=== PATIENT | female | born 1940 | race Caucasian/White ===

== ENCOUNTER → 2016-10-23 | Outpatient (CLI) | payer OTHER, BC ==
[~2016-10-23] MED LIST: ACETAMINOPHEN-1 EAC1 PO; ALDARA1 EACH TP; AMOX TR-K CLV1 EAC4 PO; ASPIRIN81 M2 PO; ATIVAN1 MG PO; CARISOPRODOL 3350 MG PO; CEFDINIR PO; COLACE100 MG PO; COMBIVENT IN; COMBIVENT RESPIM4 GM INH; COUMADIN 5 MG TA5 M1 PO; COUMADIN 5 MG TA5 MG PO; CYCLOBENZAPRINE5 MG PO; CYMBALTA30 MG PO; DILTIAZEM ER240 M1 PO; DILTIAZEM ER300 MG PO; DUONEB 2.5-0.5 M3 ML INH; FLONASE 0.05%50 MCG NS; FLONASE16 GM NASAL; FUROSEMIDE 40 M40 M1 PO; HYDROCODONE-APA1 TA1 PO; JANTOVEN6 MG PO; KEPPRA 500 MG500 M1 PO; KLOR-CON 1010 MEQ PO; LANOXIN 0.120.125 M1 PO; LANOXIN 0.250.25 MG PO; LASIX 20 MG TAB20 MG PO; LEVAQUIN 500 M500 M2 PO; LOPRESSOR50 PO; NORCO 5-325 TA1 EACH PO; NYSTATIN 1100000 U/M SWISH&SPIT; PANTOPRAZOLE SO40 M1 PO; PREDNISONE 20 M20 MG PO; PREVACID15 MG PO; PREVACID30 M1 PO; PRINIVIL10 MG PO; PRINIVIL5 MG PO; PULMICORT0.5 MG/22 INH; SEROQUEL 12.512.5 MG PO; SOMA250 MG; SYMBICORT160 MCG/4. INH; TOPROL XL 25 MG25 MG PO; TRAVATAN Z2.5 ML OPHTHALMIC; TRAZODONE HCL50 MG PO; VITAMIN B-122500 MCG PO; VITAMIN D 5050000 I1 PO; XOPENEX0.63 MG/3 IH; ZANAFLEX4 MG PO; ZOFRAN ODT4 MG DISSOLVE
== END ==
LOC: RAD 13:22
DX: J47.9 Bronchiectasis, uncomplicated (principal)

== ENCOUNTER → 2017-08-12 | Outpatient (CLI) | payer OTHER, BC ==
[2017-08-12 12:44] LABS: ABSOLUTE NEUTROPHILS 2.8 thou/uL (1.4-8.2); BASOPHILS 0.8 % (0.0-2.0); EOSINOPHILS 1.1 % (0.0-3.0); HEMATOCRIT 36.7 % (37.0-47.0); HEMOGLOBIN 12.2 gm/dL (12.0-15.0); LYMPHOCYTES 25.6 % (24.0-44.0); MCH 28.5 pg (26.0-34.0); MCHC 33.2 g/dL (28.0-37.0); MCV 85.7 fL (80.0-100.0); MONOCYTES 11.3 % (1.0-8.0); PLATELET COUNT 269 thou/uL (150-400); POLYS 61.2 % (36.0-66.0); RBC 4.28 mil/uL (4.20-5.00); RDW 14.8 % (10.5-14.5); WBC 4.6 thou/uL (4.0-11.0)
[2017-08-12 12:49] LABS: CALCIUM 8.9 mg/dL (8.5-10.1); CREATININE 0.9 mg/dL (0.6-1.0); POTASSIUM 3.7 mmol/L (3.5-5.1)
[2017-08-12 12:55] LABS: ALBUMIN 4.1 g/dL (3.4-5.0); TOTAL BILIRUBIN 0.4 mg/dL (<0.1-1.0); TOTAL PROTEIN 7.1 g/dL (6.4-8.2)
== END ==
LOC: LABMALL 12:08
PROVIDERS: Internal Medicine Pulmonary Disease
DX: J47.9 Bronchiectasis, uncomplicated (principal)

== ENCOUNTER 2018-06-03 16:31 | Inpatient (IN) | payer OTHER ==
[~2018-06-03] VITALS: Ht 165.1 cm; Wt 49.4 kg
[~2018-06-03 16:31] MED LIST changes: -DILTIAZEM ER300 MG PO; +DILTIAZEM ER360 MG PO
[2018-06-03 16:39] VITALS: BP 149/71
[2018-06-03] MEDS ORDERED: WARFARIN SODIUM2 MG PO (16:47)
[2018-06-03] MEDS ORDERED: COUMADIN 5 MG TA5 M1 PO (16:47)
[2018-06-03 17:44] LABS: ABSOLUTE NEUTROPHILS 7.2 thou/uL (1.4-8.2); BASOPHILS 0.6 % (0.0-2.0); EOSINOPHILS 0.2 % (0.0-3.0); HEMATOCRIT 35.2 % (37.0-47.0); HEMOGLOBIN 11.6 gm/dL (12.0-15.0); LYMPHOCYTES 9.4 % (24.0-44.0); MCH 27.7 pg (26.0-34.0); MONOCYTES 7.7 % (1.0-8.0); PLATELET COUNT 408 thou/uL (150-400); POLYS 82.1 % (36.0-66.0); RBC 4.19 mil/uL (4.20-5.00); RDW 17.1 % (10.5-14.5); WBC 8.7 thou/uL (4.0-11.0)
[2018-06-03 17:55] LABS: CALCIUM 9.8 mg/dL (8.5-10.1); CREATININE 0.8 mg/dL (0.6-1.0); POTASSIUM 5.5 mmol/L (3.5-5.1)
[2018-06-03 18:05] LABS: URINE BILIRUBIN NEGATIVE (Negative); URINE BLOOD NEGATIVE (Negative); URINE CLARITY CLEAR; URINE COLOR YELLOW; URINE GLUCOSE-RANDOM* NEGATIVE (Negative); URINE KETONES NEGATIVE (Negative); URINE LEUKOCYTES-REFLEX NEGATIVE (Negative); URINE NITRITE-REFLEX NEGATIVE (Negative); URINE PROTEIN (DIPSTICK) NEGATIVE (Negative); URINE SPECIFIC GRAVITY 1.025 (1.005-1.035); URINE UROBILINOGEN 0.2 E.U./dl (0.2-1.0)
[2018-06-03 18:05] LABS: ALBUMIN 3.4 g/dL (3.4-5.0); TOTAL BILIRUBIN 0.5 mg/dL (<0.1-1.0); TOTAL PROTEIN 7.8 g/dL (6.4-8.2)
--- NOTE | 2018-06-03 18:57 | NUR ---
PHARMACY CALLED DILTIAZEM HAS NOT BEEN DELIEVERED YET. PHARMACY SAID THEY ARE SENDING IT NOW
[2018-06-03 20:10] VITALS: BP 133/62
[2018-06-03 20:31] VITALS: BP 131/63
[2018-06-03 20:55] VITALS: BP 142/62
[2018-06-03] MEDS ORDERED: ISTALOL2.5 ML OP (21:13)
[2018-06-03 23:02] LABS: INR 1.7; PROTIME 18.1 Seconds (9.3-11.4)
[2018-06-04] VITALS (7 sets, daily range): BP systolic 99–131; BP diastolic 36–63
--- NOTE | 2018-06-04 05:19 | NUR ---
PT. ARRIVED AROUND 1999; AOX4; ON 10 MG/H CARDIZEM GTT; HR ON 130'S; C/O LOWER BACK PAIN; TYLENOL 3 REQUESTED PER HOME MEDS; PAIN RE-ASSESSMENT 06/25; HS SLEEPING MEDICATION GIVEN AROUND MIDNIGHT; ABLE TO REST JUST A FEW HOURS DURING THE NIGHT; AT 0330 CARDIZEM TITRATE TO 5 MG/H; HR ON 70'S-80'S; BP WNL; ASSESSMENT CHARGED; FOLLOWING POC;
[2018-06-04 07:08] LABS: CALCIUM 9.1 mg/dL (8.5-10.1); CREATININE 0.8 mg/dL (0.6-1.0); POTASSIUM 4.8 mmol/L (3.5-5.1)
--- NOTE | 2018-06-04 08:23 | EKG ---
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 : 1940 Requested By: Carlos Eduardo Clemente Order Number: [id number] MD: Pee Perez Measurements Intervals [place] Rate: 125 P: [place]: QRS: 66 QRSD: 83 T: -16 QT: 304 QTc: 439 Interpretive Statements Atrial fibrillation Abnormal R-wave progression, early transition Borderline T abnormalities, inferior leads Compared to ECG 09/30/2015 10:57:51 T-wave abnormality now present Ventricular premature complex(es) no longer present Early repolarization no longer present Possible ischemia no longer present Electronically Signed On 06-04-2018 8:23:20 CDT by Pee Perez [email or web address] ��������������������������������������������� <ELECTRONICALLY SIGNED> ���������������������������������������� By: Pee Perez MD ��������������������������������������������� 06/04/18 0823 04 04 Pee Perez MD /EPI
--- NOTE | 2018-06-04 18:56 | NUR ---
CARDIZEM GTT DISCONTINUED THIS AM. STARTED ON PO CARDIZEM. EPISODE OF ELEVATED HEART RATE THIS AFTERNOON. PLAN TO STAY OVER NIGHT TO MONITOR AND DISCHARGE IN AM. PRN PAIN MEDICATION GIVEN FOR CHRONIC BACK PAIN. UP TO BEDSIDE COMMODE. MULTIPLE LOOSE BOWEL MOVEMENTS AFTER MIRALAX GIVEN. FAMILY AT BEDSIDE THROUGH OUT THE DAY.
[2018-06-05 05:13] LABS: INR 1.6; PROTIME 16.9 Seconds (9.3-11.4)
[2018-06-05 05:40] VITALS: BP 135/73
--- NOTE | 2018-06-05 05:44 | NUR ---
RECEIVED PT'S CARE AT 1900; ON BED; AOX4; PAIN RATE 5/10; MANAGABLE; A-FIB ON MONITOR; 110'S; C/O PAIN ON R. AC IV; IV D/C; NEW IV ON R. HAND; FLUSHING; NO REDNESS; PER BUCKET OPERATOR ORDERS FLUIDS D/C; PT. DRINKING; VOIDING; CREATININE WNL; AT 2330 PT'S HR ON LATES 120'S -130'S; BUCKET OPERATOR NOTIFIED; ORDERS RECEIVED;10 MG CARDIZEM BOLUS GIVEN; RE-ASSESSMENT AFTER 45MIN; HR ON 110'S; AFIB; REQUESTED PRN PAIN MEDICATION AT 2345; PRN PAIN MEDICATION GIVEN; RE-ASSESSMENT PAIN; PT. SLEEPING; AT MIDNIGHT PT. REQUESTED PRN NAUSEA MEDICATION; MEDICATION GIVNE; AROUND 0335; PT. REQUESTED NEW GOWN AND SET OF BED DUE TO GLADIS; TEMPERATURE 98.2; ST. FREQUENTLY [place]ADIS AT NIGHT; ABLE TO REST MOST OF THE NIGHT; HR MOSTLY ON THE 80'S THE REST OF THE NIGHT; PAIN MEDICATION REQUESTED AT 0600; WILL BE GIVEN; ASSESSMENT CHARGED; FOLLOWING POC; WILL PASS ON REPORT.
[2018-06-05 08:17] VITALS: BP 111/52
[2018-06-05 12:25] VITALS: BP 95/45
[2018-06-05 15:56] VITALS: BP 95/42
--- NOTE | 2018-06-05 18:28 | NUR ---
PT STARTED ON ATENOLOL TODAY WITH GOOD RATE CONTROL. PT AMBULATED BECK WELL. PLAN FOR DISCHARGE IN THE AM.
[2018-06-05 19:12] VITALS: BP 125/67
[2018-06-06 04:55] VITALS: BP 104/43
[2018-06-06 05:40] LABS: HEMATOCRIT 34.3 % (37.0-47.0); HEMOGLOBIN 11.1 gm/dL (12.0-15.0); MCH 27.4 pg (26.0-34.0); MCHC 32.4 g/dL (28.0-37.0); MCV 84.7 fL (80.0-100.0); RBC 4.05 mil/uL (4.20-5.00); RDW 16.8 % (10.5-14.5); WBC 5.4 thou/uL (4.0-11.0)
[2018-06-06 05:48] LABS: CALCIUM 9.4 mg/dL (8.5-10.1); CREATININE 0.8 mg/dL (0.6-1.0); POTASSIUM 4.7 mmol/L (3.5-5.1)
--- NOTE | 2018-06-06 06:00 | NUR ---
Pt. rested quietly at intervals during the night when checked on during frequent rounds. She c/o back pain and given po pain meds (see emar) with some relief noted. Bed alarm is on.
[2018-06-06 08:00] VITALS: BP 104/59
--- NOTE | 2018-06-06 08:42 | HC ---
[facility] [place] [address] CONSULTATION Name: XOCHITL JANG Room #: 218-P ADM IN M.R.#: [id number] Admission: 06/03/18 ������������������ Attend Phys: Jcarlos Thapa MD Discharge: ������������������ Date of : 42 Report #: [id number] THIS REPORT FOR: //name// CC: Jcarlos Leggett DATE OF SERVICE: 06/03/2018 TYPE OF REPORT: Cardiology consultation. INDICATION: Atrial fibrillation. HISTORY OF PRESENT ILLNESS: This is a 78-year-old female with a history of CABG, SC, chronic atrial fibrillation, COPD and hypertension; who was admitted for complaints of abdominal pain, nausea and constipation 2 days ago. She was also complaining of a low-grade fever. The initial chest x-ray was unremarkable. Her symptoms have resolved. She is able to tolerate her meals without any issues. We are asked to evaluate the patient for rapid heart rate from her atrial fibrillation. Several weeks ago, she was hospitalized at [facility] for pneumonia. During that time, the Cardizem dose was increased. She denies any history of chest pains or shortness of breath. The patient follows with Dr. Howie Cruz at [facility] for her cardiac issues. PAST MEDICAL HISTORY: CABG, SC 2008, history of COPD, hypertension, chronic atrial fibrillation and followed by Dr. Cruz and GERD. ALLERGIES: Include ANTIBIOTICS. Please see chart for full listing. MEDICATIONS AT HOME: Include Cardizem 360 daily, warfarin as directed, codeine and lisinopril 20 mg daily. SOCIAL HISTORY: Denies tobacco use. FAMILY HISTORY: Negative for premature CAD. REVIEW OF SYSTEMS: A full 10-point review of systems performed. Only the pertinent positives and negatives are described in the HPI. PHYSICAL EXAMINATION: VITAL SIGNS: Blood pressure is 111/60 and heart rate is 125 beats per minute. GENERAL APPEARANCE: An elderly appearing female, in no acute distress. HEENT: Normocephalic and atraumatic. Oral mucosa moist. NECK: Supple. LUNGS: Diminished breath sounds with a few rhonchi at the bases. [facility] [address] [place] [address] CONSULTATION Name: XOCHITL JANG Room #: 218-P [facility] IN .R.#: [id number] Admission: 06/03/18 ������������������ Attend Phys: Jcarlos Thapa MD Discharge: ������������������ Date of : 42 Report #: [id number] CARDIAC: Irregularly irregular. S1 and S2 positive. ABDOMEN: Soft and nontender. EXTREMITIES: No cyanosis. No edema. RADIOLOGICAL DATA: ECG reveals atrial fibrillation with a heart rate of 125 beats per minute. LABORATORY VALUES: Sodium is 131 and creatinine 0.8. Hemoglobin is 11.6. ASSESSMENT AND PLAN: 1. Atrial fibrillation with a rapid ventricular rate, currently on Cardizem 360 mg once a day. She does not appear to have any obvious infections. It is unclear why the heart rates or so fast. I discussed with the patient the pros and cons of beta vishal therapy. She does not recall having any issues with it. The plan is to start a low dose of atenolol and follow her heart rates. Check a TSH level. We will proceed with an echocardiogram. 2. Hypertension. The blood pressure is stable with the angiotensin-converting enzyme inhibitor. 3. Coronary artery bypass grafting/coronary artery disease, stable with no complaints of angina. 4. Long-term anticoagulation, continue with warfarin, target of INR should be 2-3. 5. Chronic obstructive pulmonary disease, appears to be stable at this time. ��������������������������������������������� <ELECTRONICALLY SIGNED> ���������������������������������������� By: Juan Pablo Ham MD ��������������������������������������������� 06/06/18 0842 1002 0418 Juan Pablo Ham MD /nt
[2018-06-06] MEDS ORDERED: ATENOLOL 25 MG25 M1 PO (13:30)
[2018-06-06 13:42] VITALS: BP 104/43
== END 2018-06-06 14:22 | disposition home or self-care (01) | DRG 309 ==
LOC: ER 16:31 → 2N 19:34 → EROBS 19:34 → 2N 20:32
PROVIDERS: Emergency Medicine; Internal Medicine Cardiovascular Disease; Nurse Practitioner Acute Care; ADMIT Internal Medicine
DX: I48.91 Unspecified atrial fibrillation (principal); J96.10 Chronic respiratory failure, unspecified whether with hypoxia or hypercapnia; Z68.1 Body mass index [BMI] 19.9 or less, adult; J44.9 Chronic obstructive pulmonary disease, unspecified; I10 Essential (primary) hypertension; K21.9 Gastro-esophageal reflux disease without esophagitis; K59.00 Constipation, unspecified; I25.10 Atherosclerotic heart disease of native coronary artery without angina pectoris; E11.65 Type 2 diabetes mellitus with hyperglycemia; E87.5 Hyperkalemia; R63.4 Abnormal weight loss; Z87.01 Personal history of pneumonia (recurrent); Z88.1 Allergy status to other antibiotic agents; Z88.2 Allergy status to sulfonamides; Z88.0 Allergy status to penicillin; Z88.8 Allergy status to other drugs, medicaments and biological substances; Z79.01 Long term (current) use of anticoagulants; Z79.899 Other long term (current) drug therapy; I25.2 Old myocardial infarction; Z85.3 Personal history of malignant neoplasm of breast; Z90.12 Acquired absence of left breast and nipple; Z82.49 Family history of ischemic heart disease and other diseases of the circulatory system; Z82.3 Family history of stroke; Z80.1 Family history of malignant neoplasm of trachea, bronchus and lung; Z87.891 Personal history of nicotine dependence; Z95.1 Presence of aortocoronary bypass graft
CPT/HCPCS: 10081

== ENCOUNTER → 2020-02-28 | Outpatient (CLI) | payer OTHER ==
[~2020-02-28] MED LIST changes: +ATENOLOL 25 MG25 M1 PO; +ISTALOL2.5 ML OP; +WARFARIN SODIUM2 MG PO
== END ==
LOC: RAD 13:21
PROVIDERS: ATTEND Pediatrics
DX: J44.9 Chronic obstructive pulmonary disease, unspecified (principal); J98.11 Atelectasis; J30.9 Allergic rhinitis, unspecified; R06.02 Shortness of breath; R06.00 Dyspnea, unspecified

== ENCOUNTER 2020-09-18 14:12 | Inpatient (IN) | payer OTHER ==
[~2020-09-18] VITALS: Ht 162.6 cm; Wt 39.9 kg
[2020-09-18 14:13] VITALS: BP 142/60
[2020-09-18 14:47] LABS: ABSOLUTE NEUTROPHILS 6.2 thou/uL (1.4-8.2); BASOPHILS 0.6 % (0.0-2.0); EOSINOPHILS 2.4 % (0.0-3.0); HEMATOCRIT 36.9 % (37.0-47.0); HEMOGLOBIN 12.3 gm/dL (12.0-15.0); LYMPHOCYTES 16.6 % (24.0-44.0); MCH 30.2 pg (26.0-34.0); MCHC 33.4 g/dL (28.0-37.0); MCV 90.5 fL (80.0-100.0); MONOCYTES 4.8 % (1.0-8.0); PLATELET COUNT 243 thou/uL (150-400); POLYS 75.6 % (36.0-66.0); RBC 4.08 mil/uL (4.20-5.00); RDW 14.6 % (10.5-14.5); WBC 8.2 thou/uL (4.0-11.0)
[2020-09-18] MEDS ORDERED: ONDANSETRON ODT4 MG PO (14:47)
[2020-09-18] MEDS ORDERED: FUROSEMIDE 20 M20 M1 PO (14:47)
[2020-09-18] MEDS ORDERED: AZITHROMYCIN 2250 MG PO (14:47)
[2020-09-18] MEDS ORDERED: MECLIZINE HCL12.5 MG PO (14:48)
[2020-09-18] MEDS ORDERED: ANORO ELLIPTA1 EACH INH (14:48)
[2020-09-18] MEDS ORDERED: CLINDAMYCIN HC300 MG PO (14:48)
[2020-09-18] MEDS ORDERED: SINGULAIR 10 MG10 M1 PO (14:51)
[2020-09-18] MEDS ORDERED: APAP W/CODEINE1 TA2 PO (14:51)
[2020-09-18] MEDS ORDERED: DILTIAZEM 24HR180 M1 PO (14:51)
[2020-09-18 14:58] LABS: ANION GAP 3 mmol/L (7-16); BUN 14 mg/dL (7-18); CALCIUM 8.9 mg/dL (8.5-10.1); CHLORIDE 101 mmol/L (98-107); CO2 34 mmol/L (21-32); GLUCOSE 96 mg/dL (74-106); POTASSIUM 4.1 mmol/L (3.5-5.1); SODIUM 138 mmol/L (136-145)
[2020-09-18 15:09] LABS: ALBUMIN 3.9 g/dL (3.4-5.0); SGOT 22 U/L (15-37); SGPT 31 U/L (14-59); TOTAL BILIRUBIN 0.4 mg/dL (0.2-1.0); TOTAL PROTEIN 7.5 g/dL (6.4-8.2); TROPONIN-I <0.06 ng/mL (<0.06)
--- NOTE | 2020-09-18 15:17 | EKG ---
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: : 1940 Requested By: Jacob Dumont Order Number: [id number] MD: Neil Wood Measurements Intervals [place] Rate: 93 P: [place]: QRS: 57 QRSD: 85 T: 235 QT: 391 QTc: 487 Interpretive Statements Atrial fibrillation Repol abnrm, global ischemia, diffuse leads Compared to ECG 06/03/2018 17:05:15 Early repolarization now present Possible ischemia now present T-wave abnormality no longer present Electronically Signed On 09-18-2020 15:17:53 CDT by Neil Wood [email or web address] <ELECTRONICALLY SIGNED> By: Neil Wood MD, [facility] 09/18/20 1517 1427 1427 Neil Wood MD, FACC /EPI
[2020-09-18 17:02] LABS: BE(vivo) 6.6 mmol/L (-2 to +3); HCO3 31.6 mmol/L (22.0-26.0); PCO2 46.6 mmHg (35.0-45.0); PO2 69.8 mmHg (80.0-100.0); pH 7.449 (7.360-7.450); sO2 94.6 % (92.0-98.0)
[2020-09-18 18:11] VITALS: BP 156/69
[2020-09-18 19:31] VITALS: BP 118/97
[2020-09-18 19:51] VITALS: BP 169/75
--- NOTE | 2020-09-19 01:31 | NUR ---
Pt admitted to 463 at about 1950. Alert and oriented. Admission hx and assessment as documented. Afib. Pt's HR was up in the 150's and received scheduled PO cardizem. Did not do much for pt. Oncall ASSEMBLY LINE BRAZER was called and ordered onetime IV lopressor. See emar for medication administration. Pt's Hr now in 100's range, mostly <100. Consents signed by pt. Pt currently sleeping. Will continue to monitor.
[2020-09-19 03:25] LABS: INR 1.95; PROTIME 20.6 Seconds (10.5-12.1)
[2020-09-19 03:30] LABS: ANION GAP 8 mmol/L (7-16); BUN 16 mg/dL (7-18); CALCIUM 8.9 mg/dL (8.5-10.1); CHLORIDE 97 mmol/L (98-107); CO2 33 mmol/L (21-32); CREATININE 0.9 mg/dL (0.6-1.0); GLUCOSE 150 mg/dL (74-106); POTASSIUM 3.5 mmol/L (3.5-5.1); SODIUM 138 mmol/L (136-145); TROPONIN-I <0.06 ng/mL (<0.06)
[2020-09-19 03:42] LABS: CHOLESTEROL 177 mg/dL (<200); HDL CHOLESTEROL 68 mg/dL (>40); LDL CHOLESTEROL 101 mg/dL (<100); TC:HDL 2.6 Ratio (Not establshd); TRIGLYCERIDE 41 mg/dL (<150); VLDL 8 mg/dL (<40)
[2020-09-19 03:46] VITALS: BP 123/56
[2020-09-19 03:46] LABS: SERUM ASSESSMENT Clear
[2020-09-19 06:00] VITALS: BP 123/59
--- NOTE | 2020-09-19 06:59 | NUR ---
Pt voiced getting some sleep. Voiced that she takes seroquel at home at . Would want that reordered. Pt also voiced she takes tylenol with codeine at home for pain and spasm. Wants that reordered. Voiced if not reodered, will have bring in home med so she can take it here. Pt educated that home meds cannot be taken at the hospital without proper doctor's order. Nursing informed pt to pass on this am to day RN. Will continue to monitor.
[2020-09-19 07:48] VITALS: BP 124/62
--- NOTE | 2020-09-19 09:40 | 2DMMODE ---
[facility] [place] [address] 2 D/M-MODE ECHOCARDIOGRAM Name: XOCHITL JANG Room #: 463-P ADM IN M.R.#: [id number] Admission: 09/18/20 Attend Phys: Nieves Frank Discharge: Date of : 42 Report #: [id number] THIS REPORT FOR: cc: Luh Leggett MD, Sequita MD Park, Jin S. MD ~ APPROVED REPORT Study performed: 09/19/2020 08:45:38 EXAM: Comprehensive 2D, Doppler, and color-flow Echocardiogram Patient Location: Bedside Room #: 463 Status: routine BSA: 1.38 HR: 111 bpm BP: 124/62 mmHg Rhythm: Atrial Fibrillation Other Information Study Quality: Adequate Indications Congenital Heart Disease Dyspnea Chest Pain Hx: CABG, ISCM, Afib, HTN, HLP, COPD. 2D Dimensions RVDd: 33.90 mm IVSd: 8.02 (7-11mm) LVOT Diam: 19.07 (18-24mm) LVDd: 44.16 mm PWd: 8.17 (7-11mm) Ascending Ao: 24.41 (22-36mm) LVDs: 33.01 (25-40mm) Left Atrium: 42.58 (27-40mm) Aortic Root: 27.44 mm Volumes Left Atrial Volume (Systole) Single Plane 4CH: 76.40 mL Single Plane 2CH: 71.37 mL LA ESV Index: 58.00 mL/m2 Aortic Valve AoV Peak Rafi.: 1.68 m/s [facility] [place] [place] [address] 2 D/M-MODE ECHOCARDIOGRAM Name: XOCHITL JANG EULALIOLARISSA Room #: 463-P [facility] IN .R.#: [id number] Admission: 09/18/20 Attend Phys: Nieves Siegel Discharge: Date of : 42 Report #: [id number] AO Peak Gr.: 11.73 mmHg LVOT Max P.58 mmHg AO Mean Gr.: 5.65 mmHg AO V2 Mean: 1.12 m/s LVOT Max V: 0.95 m/s AO V2 VTI: 27.97 cm TORO Vmax: 1.60 cm2 Mitral Valve MV Decel. Time: 57.48 ms MV E Max Rafi.: 1.38 m/s Pulmonary Valve PV Peak Rafi.: 0.88 m/s PV Peak Gr.: 3.13 mmHg Tricuspid Valve TR Peak Rafi.: 2.60 m/s RAP Estimate: 10.00 mmHg TR Peak Gr.: 27.01 mmHg PA Pressure: 37.00 mmHg Left Ventricle The left ventricle is normal size. There is normal left ventricular wall thickness. Left ventricular systolic function is normal. LVEF is 55%. This study is not technically sufficient to allow evaluation of the LV diastolic function due to atrial fibrillation. Right Ventricle The right ventricle is normal size. The right ventricular systolic function is normal. Atria Severe biatrial enlargement. Aortic Valve The Aortic valve is moderately sclerotic. No aortic regurgitation is present. Mitral Valve Mitral valve leaflets are thickened. There is mitral annular calcification. Trace to mild mitral regurgitation. No evidence of mitral valve stenosis. Tricuspid Valve The tricuspid valve is normal in structure. Mild tricuspid regurgitation. Estimated PAP is 37mmHg. Pulmonic Valve The pulmonary valve is normal in structure. Trace pulmonic [facility] [address] [place] [address] 2 D/M-MODE ECHOCARDIOGRAM Name: XOCHITL JANG Room #: 463-P [facility] IN M.R.#: [id number] Admission: 09/18/20 Attend Phys: Nieves Siegel Discharge: Date of : 42 Report #: [id number] regurgitation. Great Vessels The aortic root is normal in size. The ascending aorta is normal in size. IVC is borderline dilated and collapses <50% with inspiration. Pericardium There is no pericardial effusion. Right pleural effusion noted. <Conclusion> The left ventricle is normal size. There is normal left ventricular wall thickness. Left ventricular systolic function is normal. The right ventricle is normal size. Severe biatrial enlargement. The Aortic valve is moderately sclerotic. Trace to mild mitral regurgitation. Mild tricuspid regurgitation. <ELECTRONICALLY SIGNED> By: Juan Pablo Ham MD 09/19/2040 9 Juan Pablo Ham MD /ALF
--- NOTE | 2020-09-19 14:42 | NUR ---
Patient has had 7/10 back pain today. Tylenol given. Stand By assist. Her is at bedside. On 3 Lo2 via nasal cannula. Possible D/C today
[2020-09-19 15:44] VITALS: BP 130/69
[2020-09-19 21:00] VITALS: BP 133/79
--- NOTE | 2020-09-20 01:50 | NUR ---
patient aox4 makes needs known. patient is a stand by assist. patient gets tachy on tele during breathing treatment. patient has v tach if she sleeps ont he left side. patient has neck pain but declined pain meds. patient on 3l of oxygen no soa r distress noted this shift.patient in bed asleep at this time breathing regular and unlaboured.
[2020-09-20 06:06] LABS: INR 1.67; PROTIME 17.8 Seconds (10.5-12.1)
[2020-09-20 06:09] LABS: ALBUMIN 3.3 g/dL (3.4-5.0); CALCIUM 8.7 mg/dL (8.5-10.1); CREATININE 0.9 mg/dL (0.6-1.0); PHOSPHORUS 4.1 mg/dL (2.5-4.9); POTASSIUM 3.6 mmol/L (3.5-5.1)
[2020-09-20] MEDS ORDERED: ATENOLOL 50MG T50 MG PO (07:59)
[2020-09-20] MEDS ORDERED: ERYTHROMYC PO (08:00)
[2020-09-20] MEDS ORDERED: PREDNISONE 20 M20 MG PO (08:01)
[2020-09-20 08:08] VITALS: BP 120/59
[2020-09-20 09:32] VITALS: BP 120/59
--- NOTE | 2020-09-20 09:56 | NUR ---
ASSUMED CARE OF PT AT 0700 THIS MORNING. PT IS A/OX4, SKIN INTACT WITH NO TENTING. PT IS ON O2 AT 2L/NC BUT IS NOT ON O2 AT HOME. PT IS TO BE DISCHARGED, SO I CALLED R/T FOR CONSULT. ASSESSMENTS CHARTED AND OTHERWISE UNREMARKABLE. IV IN RT AC WITH SL. CALL LIGHT AND OTHER NEEDS ARE WITHIN REACH AND PT IS INDEP AMBULATION. MEDS AND TX GIVEN NEEDED AND SCHEDULED. WILL MONITOR AND NOTE ANY CHANGES.
[2020-09-20 11:23] VITALS: BP 120/59
--- NOTE | 2020-09-20 11:31 | NUR ---
PT ADMITTED RELATED TO COPD EXACERBATION. CM REVIEWED CHART AND SPOKE WITH CARE TEAM. CM MET WITH PT AND SPOUSE AT BEDSIDE THIS DAY. PT APPEARED TO BE A&O X4. CM ROLE INTRODUCED. PT INDICATED SHE AND SPOUSE LIVE IN A HOUSE WITH 8 STEPS TO ENTER THEN ALL NEEDS ON ONE LEVEL. PT INDICATED THAT SHE HAD USED A CANE TO GET AROUND AT HOME BUT HAD BEEN INDEPENDENT WITH ADLS. PT INDICATED HH IN PAST NOTHING RECENT. PT INDICATED NO HOME O2. CURRENTLY ON 2L. PT NEEDS 2L WITH ACTIVITY. PT'S SPOUSE HAS O2 THROUGH [facility] AND THEY WANT TO USE THEM. CM FAXED ORDER. PORTABLE TANK WAS DELIVERED. PT'S SPOUSE TO PROVIDE TRANSPORT HOME THIS DAY. PT TO DC HOME TO SELF CARE WITH O2 THROUGH [facility]. NO OTHER CM INTERVENTION INDICATED. CASE CLOSED.
== END 2020-09-20 13:17 | disposition home or self-care (01) | DRG 291 ==
LOC: ER 14:12 → EROBS 16:20 → 4W 16:20
PROVIDERS: Emergency Medicine; Nurse Practitioner; ADMIT Hospitalist; ATTEND Hospitalist
DX: I11.0 Hypertensive heart disease with heart failure (principal); J96.91 Respiratory failure, unspecified with hypoxia; J44.1 Chronic obstructive pulmonary disease with (acute) exacerbation; I48.21 Permanent atrial fibrillation; J98.11 Atelectasis; I50.23 Acute on chronic systolic (congestive) heart failure; I25.10 Atherosclerotic heart disease of native coronary artery without angina pectoris; Z20.822 Contact with and (suspected) exposure to COVID-19; I25.5 Ischemic cardiomyopathy; E78.5 Hyperlipidemia, unspecified; K21.9 Gastro-esophageal reflux disease without esophagitis; Z90.12 Acquired absence of left breast and nipple; Z85.3 Personal history of malignant neoplasm of breast; I25.2 Old myocardial infarction; Z88.6 Allergy status to analgesic agent; Z88.1 Allergy status to other antibiotic agents; Z88.0 Allergy status to penicillin; Z88.2 Allergy status to sulfonamides; Z88.8 Allergy status to other drugs, medicaments and biological substances; Z87.891 Personal history of nicotine dependence
CPT/HCPCS: 10045

== ENCOUNTER → 2020-12-18 | Outpatient (CLI) | payer OTHER ==
[~2020-12-18] MED LIST changes: +ANORO ELLIPTA1 EACH INH; +APAP W/CODEINE1 TA2 PO; +ATENOLOL 50MG T50 MG PO; +AZITHROMYCIN 2250 MG PO; +CLINDAMYCIN HC300 MG PO; +DILTIAZEM 24HR180 M1 PO; +ERYTHROMYC PO; +FUROSEMIDE 20 M20 M1 PO; +MECLIZINE HCL12.5 MG PO; +ONDANSETRON ODT4 MG PO; +SINGULAIR 10 MG10 M1 PO
== END ==
LOC: RAD 12:37
PROVIDERS: ATTEND Pediatrics
DX: R06.02 Shortness of breath (principal)